=== PATIENT | male | born 1965 | race Asian ===

== ENCOUNTER 2019-12-31 13:32 | Outpatient (CLI) | payer OTHER ==
--- NOTE | 2019-12-31 14:00 | XRAY Report ---
PROCEDURE: Chest 2 View X-Ray INDICATIONS: COUGH TECHNIQUE: 2 view(s) of the chest. COMPARISON: None. FINDINGS: Surgical changes and devices: None. Lungs and pleura: No pleural effusions or pneumothorax. Lungs are clear. Mediastinum: Mediastinal contours are normal. Heart size is normal. Bones and chest wall: No suspicious bony abnormalities. Soft tissues appear unremarkable. IMPRESSION: No acute pulmonary process. Reviewed by: Carmela York MD on 12/31/2019 1:59 PM PDT Approved by: Carmela York MD on 12/31/2019 1:59 PM PDT Station ID: [id number]
== END 2019-12-31 13:33 | disposition home or self-care (01) ==
LOC: DI.S 13:32
PROVIDERS: ATTEND Internal Medicine
DX: R05 Cough (principal)
CPT/HCPCS: 71046

== ENCOUNTER 2020-10-18 10:44 | Outpatient (CLI) | payer OTHER ==
--- NOTE | 2020-10-18 11:06 | XRAY Report ---
PROCEDURE: Chest 2 View X-Ray INDICATIONS: COUGH TECHNIQUE: 2 view(s) of the chest. COMPARISON: CXR 12/31/2019. FINDINGS: Surgical changes and devices: None. Lungs and pleura: No pleural effusions or pneumothorax. Lungs are clear. Mediastinum: Mediastinal contours are normal. Heart size is normal. Bones and chest wall: No suspicious bony abnormalities. Soft tissues appear unremarkable. IMPRESSION: No acute cardiopulmonary abnormality. Reviewed by: Maciej Cantu MD on 10/18/2020 11:04 AM PDT Approved by: Maciej Cantu MD on 10/18/2020 11:04 AM PDT Station ID: [id number]
== END 2020-10-18 10:45 | disposition home or self-care (01) ==
LOC: DI.S 10:44
PROVIDERS: ATTEND Internal Medicine
DX: R05 Cough (principal)

== ENCOUNTER 2021-12-13 16:53 | Outpatient (CLI) | payer OTHER ==
--- NOTE | 2021-12-14 17:10 | CT Report ---
PROCEDURE: Low Dose Lung Cancer Screen INDICATIONS: SCREENING FOR LUNG CA TECHNIQUE: Noncontrast low-dose axial images were acquired from the pulmonary apices to the posterior costophren ic angles. Multiplanar MIP reformats were then reconstructed. For radiation dose reduction, the follo wing was used: automated exposure control, adjustment of mA and/or kV according to patient size. COMPARISON: Chest radiograph dated 10/18/2020. FINDINGS: Image quality: Excellent. Lungs and pleura: Mild bibasilar atelectasis. No focal consolidation. No septal thickening or nodula rity. No suspicious pulmonary nodules or masses. No pleural effusion or pneumothorax. Mediastinum: Heart size is normal. Minimal coronary atherosclerotic calcifications noted. No pericar dial effusion. No mediastinal adenopathy by size criteria. Thoracic aorta and central pulmonary art eries are normal in size. Scattered atherosclerotic calcifications of the aortic arch. Esophagus is normal in caliber. No hiatal hernia. Bones and chest wall: No suspicious bony lesions. No acute vertebral body compression fractures. N o axillary or supraclavicular adenopathy by size criteria. The thyroid is normal in size and there a re no incidental findings. Abdomen: There is a gallstone noted near the gallbladder neck without CT evidence for acute cholecyst itis. Remaining upper abdomen solid organs and bowel loops appear unremarkable in the absence of cont rast. IMPRESSION: CT chest without acute cardiopulmonary abnormalities. No suspicious pulmonary nodules or masses. Atherosclerotic vascular disease. Cholelithiasis without CT evidence for acute cholecystitis. Lung RADS 1 (negative): Recommend continued annual screening low dose chest CT. CLINICAL RECOMMENDATION STATEMENTS: In patients <35 years with an ITN detected on CT, MRI, or extrathyroidal ultrasound, the Committee re commends further evaluation with dedicated thyroid ultrasound if the nodule is "e1 cm and has no susp icious imaging features, and if the patient has normal life expectancy. In patients "e35 years with an ITN detected on CT, MRI, or extrathyroidal ultrasound, the Committee r ecommends further evaluation with dedicated thyroid ultrasound if the nodule is "e1.5 cm and has no s uspicious imaging features, and if the patient has normal life expectancy. (ACR, 2014) Reviewed by: Eduardo Jung MD on 12/14/2021 5:09 PM PDT Approved by: Eduardo Jung MD on 12/14/2021 5:09 PM PDT Station ID: [id number]
== END 2021-12-13 16:54 | disposition home or self-care (01) ==
LOC: DI 16:53
PROVIDERS: ATTEND Internal Medicine
DX: Z12.2 Encounter for screening for malignant neoplasm of respiratory organs (principal); I70.0 Atherosclerosis of aorta; K80.20 Calculus of gallbladder without cholecystitis without obstruction